=== PATIENT | female | born 1990 | race Caucasian/White ===

== ENCOUNTER 2017-05-28 22:11 | Emergency (ER) | payer OTHER ==
[~2017-05-28] VITALS: Ht 167.6 cm; Wt 62.5 kg
[2017-05-28 22:15] VITALS: Ht 167.6 cm; Wt 62.5 kg
[2017-05-28] MEDS ORDERED: IBUP-1542 PO (22:57)
[2017-05-28] MEDS ORDERED: AMO500 PO (22:57)
--- NOTE | 2017-05-28 23:58 | ERD ---
ER Documentation Chief Complaint Date/Time DATE: 05/28/17 TIME: 23:55 Chief Complaint SORE THROAT AND MICHAEL X 2 DAYS HPI This is a 27-year-old female presenting to the emergency department complaining of a sore throat and headache for the past 2 days. Patient rates the pain moderate in severity. She states that it has been constant, denies it right nonradiating. Patient denies cough. She states that she did have a fever yesterday but denies any fever today. Denies any ear pain. She states she has taken ibuprofen yesterday for pain ROS All systems reviewed and are negative except as per history of present illness. Medications Home Meds Active Scripts Ibuprofen* (Motrin*) 600 Mg Tab, 600 MG PO Q6H Y for PAIN AND OR ELEVATED TEMP, #30 TAB Prov:GRAEME JAY PA-C 05/28/17 Amoxicillin* (Amoxicillin*) 500 Mg Cap, 500 MG PO BID for 10 Days, CAP Prov:GRAEME JAY PA-C 05/28/17 Allergies Allergies: Coded Allergies: No Known Allergy (Unverified , 05/28/17) PMhx/Soc History of Surgery: No Anesthesia Reaction: No Hx Neurological Disorder: No Hx Respiratory Disorders: No Hx Cardiac Disorders: No Hx Psychiatric Problems: No Hx Miscellaneous Medical Probl: No Hx Alcohol Use: Yes (SOCIAL ) Hx Substance Use: No Hx Tobacco Use: No Smoking Status: Never smoker Physical Exam Vitals Vital Signs Date Time Temp Pulse Resp B/P Pulse Ox O2 Delivery O2 Flow Rate FiO2 05/28/17 22:15 98.4 89 18 119/67 98 Physical Exam Const: Developed well-nourished no acute distress Head: Atraumatic Eyes: Normal Conjunctiva ENT: Tonsillar exudates Neck: Cervical lymphadenopathy Resp: Clear to auscultation bilaterally Cardio: Regular rate and rhythm, no murmurs Abd: Soft, non tender, non distended. Normal bowel sounds Skin: No petechiae or rashes Back: No midline or flank tenderness Ext: No cyanosis, or edema Neur: Awake and alert Psych: Normal Mood and Affect Procedures/MDM MDM: 27-year-old female presents to the ER with sore throat, I have a high suspicion for strep pharyngitis, low suspicion for retropharyngeal abscess, peritonsillar abscess, or [employer] angina due to physical examination. According to suggest criteria, patient had 4/4 criteria. Therefore she will be treated accordingly. hemodynamically stable for discharge. Prescription for Motrin, amoxicillin 500mg BID was given to patient, discussed to return to the ED if not improving as expected or follow-up with a primary care physician. Patient understood and agreed with this plan. Departure Diagnosis: Primary Impression: Pharyngitis Condition: Stable Patient Instructions: Pharyngitis, Strep (Presumed) Additional Instructions: FOLLOW UP WITH YOUR PRIMARY CARE PHYSICIAN TOMORROW.Return to this facility if you are not improving as expected. Take all medicines as directed. Return to this facility if you are not improving as expected. GRAEME JAY PA-C May 28, 2017 23:57
== END 2017-05-28 23:28 | disposition home or self-care (01) ==
LOC: FTE 22:11
DX: J02.9 Acute pharyngitis, unspecified (principal)
CPT/HCPCS: 99283